=== PATIENT | male | born 2000 | race Caucasian/White ===

== ENCOUNTER 2020-09-12 12:52 | Emergency (ER) | payer SELFPAY ==
[2020-09-12 12:53] VITALS: BP 155/81; PULSE 75; RESP 20; TEMP 36.3; O2SAT 99; BMI 20.2
--- NOTE | 2020-09-12 13:10 | ED.VISSUMM ---
- ER Visit Summary Date of Service: 09/12/20 Chief Complaint: Sore throat History of Present Illness: The patient is a 20 M with no primary care physician. He reports he has a sore throat that began 3 days ago. Reports is mild currently. Is moderate when he swallows. States it is burning with this. He denies any dental pain. He denies any fever, chills, cough, shortness of breath. No known sick contacts. He does wear a mask. Physical Examination: Vitals: Stable. Afebrile. General: Well-nourished and well-developed. Head: Normocephalic atraumatic. HEENT: Pharyngeal erythema. No tonsillar exudate or enlargement. No cervical lymphadenopathy. No evidence of a peritonsillar abscess. Neck: Supple, no lymphadenopathy. No JVD. Nontender. Cardiovascular: Regular rate and rhythm. No murmurs. Respiratory: No respiratory distress. Clear to auscultation bilaterally. Abdominal: Soft, nontender, nondistended, normal bowel sounds. No guarding, rebound, or peritoneal signs. Back: Nontender. Extremities: Nontender, no edema. Skin: Normal color, no rash. Neurologic: Alert and oriented ?3. Cranial nerves II through XII are intact. Normal strength and sensation. Psych: Normal affect. Test Results: Rapid strep was positive. Emergency Department Course and Treatment: Patient refused Covid testing. He also refused pain or nausea medications. He is resting comfortably. Treatment Plan: Patient be discharged with instructions to follow-up with the [facility] in 1 week if not improving. He is instructed on symptomatic care. Return to the emergency department for any worsening symptoms. Disposition: To home in improved and stable condition. Impression: 1. Pharyngitis, strep. This note was generated with [employer] dictation software. It may contain incorrect words, spelling, and punctuation that were not noted in review of the chart prior to signing ED Disposition - Plan for ED Patient: Instructions: ED Pharyngitis Strep Confirmed Prescriptions: Amoxicillin 500 mg PO TID #30 tablet Referrals: [facility] Crouch [NON-STAFF] - 1 Week if not improving
[2020-09-12] MEDS: AMOXICILLIN 500 MG CAPSULE PO (13:57)
== END 2020-09-12 13:57 | disposition home or self-care (01) ==
PROVIDERS: Emergency Provider Emergency Medicine
DX: J02.0 Streptococcal pharyngitis (principal); F17.290 Nicotine dependence, other tobacco product, uncomplicated
CPT/HCPCS: 87880; 99282

== ENCOUNTER 2020-11-09 09:56 | Emergency (ER) | payer SELFPAY ==
[2020-11-09 09:59] VITALS: BP 126/77; PULSE 90; RESP 16; TEMP 36.6; O2SAT 100; BMI 19.9
--- NOTE | 2020-11-09 10:27 | RAD_ITS ---
STUDY: X-RAY CHEST REASON FOR EXAM: Male, 20 years old. LEFT SIDED CHEST PAIN, FELT A POP ON LEFT SIDE TECHNIQUE: PA and lateral views of the chest. COMPARISON: Comparison is made with prior study dated 08/11/2014. FINDINGS: The lungs are clear and expanded. There is no demonstrated pleural abnormality. Normal size heart. Normal mediastinum and robert. Normal visualized pulmonary arteries. Normal visualized aortic arch and descending thoracic aorta. Normal visualized thoracic spine. Normal visualized ribs, clavicles, and shoulders. There is no demonstrated abnormality of the visualized soft tissue structures of the upper abdomen. RAD/Chest PA and Lateral IMPRESSION: Normal x-ray examination of the chest. Electronically Signed: Quan Barragan MD at 10:55 EST , Service support ,
--- NOTE | 2020-11-09 10:29 | ED.VIS.GEN ---
History of Present Illness Chief Complaint: Chest Other Informant: Patient Narrative: 20-year-old male arriving for the evaluation of chest pain. Patient states for the past several days he has had a pain in his left mid ribs in the midaxillary line that is extending anteriorly to the anterior chest. It is worse with touch deep breathing and raising his arm. He denies any known trauma. No shortness of breath. He does vape. No history of pneumothorax. Former smoker. No rashes. Past Medical History - Allergies and Home Meds Allergies/Adverse Reactions: Allergies No Known Allergies Allergy (Verified 11/09/20 09:59) Primary Care Physician: Care Physician,No Primary [Primary Care Provider] - Past Medical History: None Surgical History: noncontributory Smoking Status: Current every day smoker Drugs: Marijuana Review of Systems General: Denies: Chills, Fever, Sweats Eyes: Denies: Visual changes - bilaterally, Diplopia ENT: Denies: Rhinorrhea, Sore throat Cardiovascular: Reports: Chest pain. Denies: Palpitations Respiratory: Denies: Dyspnea, Cough, Dyspnea on exertion Gastrointestinal: Denies: Abdominal pain, Nausea, Vomiting, Diarrhea, Melena, Hematochezia Genitourinary: Denies: Dysuria, Hematuria, Frequency Musculoskeletal: Denies: Back pain, Extremity Pain Skin: Denies: Rash, Wounds Neurological: Denies: Headache, Weakness, Numbness Physical Exam Vital Signs/Narrative: Vital Signs Temp Pulse Resp BP Pulse Ox 11/09/20 09:59 97.9 F 90 16 126/77 H 100 Inital Vital Signs reviewed: Yes General: Well nourished, Well developed, No Acute Distress Head: Normocephalic, Atraumatic Eyes: Perrl, EOMI ENT: Moist mucous membranes, No rhinorrhea Neck: Supple, Nontender Cardiovascular: Regular rate, Regular rhythm, No murmurs Respiratory: No distress, CTA bilaterally, Chest tenderness - Has tenderness in the left mid axillary mid ribs and anterior chest along the costochondral border Abdomen: Soft, Nontender, Nondistended, Normal bowel sounds Back: Nontender, Normal Inspection Extremities: Nontender, No edema Skin: Normal color, No rash Neurological: Alert, Oriented x3, Cranial nerves II-XII grossly intact, Normal Strength, Normal Sensation Psychological: Normal affect, Normal Mood Diagnostic/Tx/Re-eval Clinical Impression(s) from Imaging Studies Chest X-Ray 11/09/20 10:27 IMPRESSION: Normal x-ray examination of the chest. Electronically Signed: Quan Barragan MD at 10:55 EST , Service support , - Medical Decision Making My interpretation of the 2 view chest x-ray is no acute process. Confirmed by radiology. Based upon the patient's description I think this is most likely costochondritis will be treated conservatively with anti-inflammatories at home. ED Disposition - Plan for ED Patient: Disposition: Home or Assisted Living Diagnosis: Costochondritis, acute Instructions: ED Chest Wall Pain, Costochondritis Prescriptions: Ibuprofen [Motrin] 600 mg PO TID #21 tab Prescription Printed Referrals: [facility] [NON-STAFF] - As Needed
[2020-11-09 11:22] VITALS: BP 108/69; PULSE 57; RESP 16; O2SAT 100
== END 2020-11-09 11:22 | disposition home or self-care (01) ==
PROVIDERS: Emergency Provider Emergency Medicine
DX: M94.0 Chondrocostal junction syndrome [Tietze] (principal); F17.200 Nicotine dependence, unspecified, uncomplicated
CPT/HCPCS: 71046; 99282

== ENCOUNTER 2021-09-28 12:42 | Emergency (ER) | payer SELFPAY ==
[2021-09-28 12:43] VITALS: BP 133/85; PULSE 109; RESP 18; TEMP 37; O2SAT 96; BMI 22.8
[2021-09-28 14:30] VITALS: BP 127/95; PULSE 94; RESP 16; O2SAT 97; O2SAT 99
--- NOTE | 2021-09-28 14:54 | EDS_ITS ---
HPI History of Present Illness Chief Complaint: Cough Informant: patient Narrative Narrative: Presents with increasing intermittent wheezing at night in the mornings. Occasional cough. No fevers. No chest pains. No vomiting or diarrhea. No loss of taste or smell. Reports for the past year has switched from cigarettes over to vaping. He states he has been trying to use less of this. No history of asthma. Does not have a PCP. Today wheezing throughout t he day at work had to leave. He came here for evaluation. Prior similar symptoms: Yes PFSH PFSH Medical History no medical history Home Medications NK 09/28/21 [History Last Taken Unknown] Allergy/AdvReac Type Severity Reaction Status Date / Time No Known Allergies Allergy Verified 09/28/21 12:43 Surgical History no surgical history Social History Smoking Status: Current some day smoker tobacco type: e-cigarettes ROS ROS ED Constitutional Constitutional ED: Denies chills, fever(s) or sweats Eyes Eyes: Denies change in vision ENT ENT ED: Denies dysphagia or sore throat Cardiovascular Cardiovascular: Denies chest pain, leg edema, palpitations or racing heartbeat Respiratory/Chest Respiratory/Chest: Reports cough, dyspnea and other Details: Wheezing ; Denies dyspnea on exertion Gastrointestinal Gastrointestinal: Denies abdominal pain, diarrhea, nausea or vomiting Genitourinary Genitourinary ED: Denies dysuria, hematuria or urinary frequency Musculoskeletal Musculoskeletal: Denies back pain, extremity pain or neck pain Integumentary Denies rash or wounds Neurologic Neurologic: Denies headache(s), paresthesias or weakness EXAM Physical Exam Const Vital Signs: 09/28/21 12:43 09/28/21 14:30 Temperature 98.6 F Temperature Source Temporal Pulse Rate 109 H 94 Respiratory Rate 18 16 Respiratory Effort Normal Non-Labored Blood Pressure 133/85 H 127/95 H Blood Pressure Mean 101 105 Pulse Ox 96 99 Oxygen Delivery Method Room Air Room Air Positive well nourished and well developed General Appearance ED: well developed and NAD HEENT Reports moist mucous membranes normocephalic and atraumatic Eyes PERRL, EOMs intact bilaterally and conjunctivae normal General Eye ED: Yes normal appearance of both eyes Neck no lymphadenopathy and supple General: Negative for tenderness Chest Wall Chest: Negative for tenderness Resp normal air movement Resp Narrative: Expiratory wheezing, no distress Effort and Inspection: symmetric chest movement; Negative for respiratory distress Cardio regular rate, regular rhythm and no murmurs Peripheral Pulses: pulses 2+ throughout GI normal to inspection, nondistended, normoactive bowel sounds and non-tender Palpation: Negative for guarding or rebound tenderness present Back/Spine no CVA tenderness and no thoracic nor lumbar tenderness Extremity normal to inspection General Extremety ED: Negative for edema or tenderness General Extremity: Negative for edema Neuro oriented x3 and no sensory deficits noted Sensorium / Orientation: awake and alert Skin no rashes or lesions noted and no wounds MDM MDM MDM Narrative Medical decision making narrative: Patient nontoxic initial pulse 109 in triage recheck was 94. Patient had a rapid Covid from triage returned negative. History symptoms more concerns for bronchospasm secondary to vaping history. He has no asthma history. No indications for steroids. Discussed with patient cessation of vaping. Also admits to occasional marijuana. His lung sounds are symmetric with wheezing. He is provided inhaler with spacer with instructions for use for his wheezing. He is given follow-up as an outpatient. All questions were answered. Patient is being discharged under pandemic conditions under declared global, national and state disaster activation, with limited medical resources. Patient and community understands this. Results discussed in layman's terms to the patient satisfaction. All questions answered in layman's terms. Patient understands importance of follow-up care as directed. Patient has been instructed to return to the ED immediately if new symptoms, problems, or questions occur. We mutually agree with the plan of disposition. The patient understand that they may call or return with any questions or concerns at any time. Discharge Plan Triage Chief Complaint: Cough ED Provider: Enrique Hedrick Dx/Rx/DC Orders Clinical Impression: Wheezing on expiration, Disorder due to vaping Instructions: E-Cigarettes and Vaping, ED Bronchospasm (Adult) Prescriptions: No Action NK RF: 0 Primary Care Provider: Care Physician,No Primary Referrals: [facility] [NON-STAFF] - 1 Week Care Physician,No Primary [Primary Care Provider] - Disposition Disposition: Home, Self Care
== END 2021-09-28 15:01 | disposition home or self-care (01) ==
PROVIDERS: Emergency Provider Emergency Medicine
DX: U07.0 Vaping-related disorder (principal); R06.2 Wheezing; F17.290 Nicotine dependence, other tobacco product, uncomplicated
CPT/HCPCS: 87426; 94640; 99282

== ENCOUNTER 2022-07-06 18:21 | Emergency (ER) | payer OTHER, SELFPAY ==
[2022-07-06 18:22] VITALS: BP 136/101; PULSE 98; RESP 16; TEMP 36.8; O2SAT 97; BMI 23.6
[2022-07-06 20:33] VITALS: PULSE 90; RESP 16; O2SAT 96
[2022-07-06] MEDS: Albuterol 2.5 MG/3 ML VIAL.NEB. INHALATION (20:33)
--- NOTE | 2022-07-06 20:49 | ED.VIS.DYS ---
HPI History of Present Illness Chief Complaint: Cough Informant: patient Narrative Narrative: Patient evaluated for persistent wheezing. Patient does not carry diagnosis of asthma I will but states he often has episodes of wheezing and shortness of breath especially when the weather changes. He was seen in urgent care yesterday were he had a negative COVID test. He notes that they started him on steroids but did not give him an inhaler. A year ago he was seen in our ER and he states when he got inhaler. He is not currently have a primary care doctor. He is interested in a referral as he now has insurance. He notes that yesterday morning he had some cold sweats and felt fatigued in the morning. He continues to smoke half a pack of cigarettes a day. His cough alternates between sputum and foamy white material that he coughs up. Today he had an episode of posttussive emesis. Denies any sick contacts. Denies any nasal congestion or URI symptoms. No other complaints at this time. Does not officially carry a diagnosis of asthma. PFSH PFS Medical History no medical history Home Medications NK 09/28/21 [History Last Taken Unknown] Allergy/AdvReac Type Severity Reaction Status Date / Time No Known Allergies Allergy Verified 07/06/22 18:22 Social History Smoking Status: Current some day smoker tobacco type: cigarettes ROS ROS ED Constitutional Constitutional ED: Reports sweats; Denies chills or fever(s) Eyes Eyes: Denies change in vision ENT ENT ED: Denies rhinorrhea or sore throat Cardiovascular Cardiovascular: Denies chest pain or palpitations Respiratory/Chest Respiratory/Chest: Reports cough, dyspnea and sputum Gastrointestinal Gastrointestinal: Reports vomiting; Denies abdominal pain or nausea Musculoskeletal Musculoskeletal: Denies arthralgias Integumentary Denies rash Neurologic Neurologic: Denies headache(s) or weakness Psychiatric Psychiatric: Denies anxiety EXAM Physical Exam Const Vital Signs: 07/06/22 18:22 07/06/22 18:29 Temperature 98.3 F Temperature Source Temporal Pulse Rate 98 Respiratory Rate 16 Respiratory Effort Short of Breath Respiratory Depth Normal Respiratory Pattern Normal Blood Pressure 136/101 H Blood Pressure Mean 112 Pulse Ox 97 Oxygen Delivery Method Room Air Room Air Positive well nourished and well developed General Appearance ED: well developed and NAD HEENT Reports moist mucous membranes Eyes PERRL and EOMs intact bilaterally Neck supple Resp normal respiratory effort Auscultation: wheezes expiratory wheezes and throughout Cardio regular rate, regular rhythm and no murmurs GI Auscultation: normoactive bowel sounds and hyperactive bowel sounds Back/Spine normal to inspection Extremity normal to inspection Neuro oriented x3 Gait (Neuro): normal gait Psych mental status grossly normal Skin no wounds Rashes: no rashes MDM MDM MDM Narrative Medical decision making narrative: Patient evaluated for months of intermittent wheezing. He was started on steroids yesterday and had negative COVID test yesterday. Patient appears nontoxic and has no new respiratory distress. He does scattered expiratory wheezing however he is respiratory rate is normal and so is his O2 saturation. Breath sounds are equal and I do not think a chest x-ray is indicated. Patient is given an albuterol treatment. When I went in to reevaluate him after his treatment patient had eloped from the emergency room. I previously counseled the patient needs to stop smoking cigarettes and needs to follow-up with a primary care doctor. Respiratory did report improvement of respiratory sounds after treatment. Discharge Plan Triage Chief Complaint: Cough ED Provider: Stephania Retana Dx/Rx/DC Orders Clinical Impression: Expiratory wheezing, Reactive airway disease, Tobacco use Prescriptions: No Action NK Primary Care Provider: Care Physician,No Primary Referrals: Care Physician,No Primary [Primary Care Provider] - Disposition Disposition: Elopement
== END 2022-07-06 20:57 | disposition left against medical advice (07) ==
PROVIDERS: Emergency Provider Emergency Medicine; Visit Provider Emergency Medicine
DX: J45.909 Unspecified asthma, uncomplicated (principal); F17.210 Nicotine dependence, cigarettes, uncomplicated
CPT/HCPCS: 94640; 99251; 99282; G0463

== ENCOUNTER 2023-03-15 14:30 | Emergency (ER) | payer OTHER, SELFPAY ==
[2023-03-15 14:30] VITALS: BP 168/85; PULSE 118; RESP 20; TEMP 36.8; O2SAT 96; BMI 21.8
[2023-03-15 14:39] VITALS: O2SAT 95
--- NOTE | 2023-03-15 14:50 | RAD_ITS ---
STUDY: X-RAY CHEST REASON FOR EXAM: Male, 22 years old. Cough and dyspnea. TECHNIQUE: PA and lateral views of the chest. COMPARISON: Comparison is made with prior study dated November 09, 2020. FINDINGS: The lungs are clear and expanded. Scattered calcified granulomas. There is no demonstrated pleural abnormality. Normal size heart. Normal mediastinum and robert. Normal visualized pulmonary arteries. Normal visualized aortic arch and descending thoracic aorta. Normal visualized thoracic spine. Normal visualized ribs, clavicles, and shoulders. There is no demonstrated abnormality of the visualized soft tissue structures of the upper abdomen. RAD/Chest PA and Lateral IMPRESSION: Normal x-ray examination of the chest. Electronically Signed: Quan Barragan MD at 15:02 EDT ,
--- NOTE | 2023-03-15 15:34 | EX.ED.DYSGE1 ---
HPI History of Present Illness Chief Complaint: Shortness of Breath Narrative Narrative: Patient is a 22-year-old male who is presenting to the ER with chief complaint of years of cough, congestion, nose running and intermittent shortness of breath. Patient smokes cigarettes for approximately 5 to 8 years. Patient quit smoking cigarettes approximate 1 year ago, he has been vaping for the past year. Patient also smokes marijuana. Patient is currently trying to stop smoking and vaping altogether but he will continue to keep doing marijuana. No recent traveling. He is not lightheaded or dizzy. No headache. No neck pain. No chest pain. No significant shortness of breath with exertion. No abdominal pain, nausea or vomiting. Patient does take Claritin intermittently. Patient will notice with the weather changes and high pollen counts the patient is more congested, cough. Patient decided to finally come into the ER today. Patient has no PCP. No one has seen or evaluated this patient last 2 years. No other acute complaints. PFSH PFSH Medical History no medical history Home Medications albuterol sulfate 2.5 mg/3 mL (0.083 %) solution for nebulization 2.5 mg (3 mL) inhalation Q4H PRN #25 vials 03/15/23 [Rx Last Taken Unknown] Allergy/AdvReac Type Severity Reaction Status Date / Time No Known Allergies Allergy Verified 03/15/23 14:33 Social History Smoking Status: Current some day smoker tobacco type: cigarettes ROS ROS ED ROS Narrative REVIEW OF SYSTEMS: Unless otherwise stated in this report the patient's positive and negative responses for review of systems for constitutional, eyes, ENT, cardiovascular, respiratory, gastrointestinal, neurological, , musculoskeletal, and integument systems and related systems to the presenting problem are either stated in the history of present illness or were not pertinent or were negative for the symptoms and/or complaints related to the presenting medical problem. EXAM Physical Exam Narrative Exam Narrative: Vital signs reviewed and patient is not hypoxic. General: The patient appears well and in no apparent distress. Patient is resting comfortably on cart. Not toxic, lethargic, or listless. Skin: Warm, dry, no pallor noted. There is no rash noted. Head: Normocephalic, atraumatic; no tenderness to palpation to bilateral frontal or maxillary sinus. Eye: Normal conjunctiva, no drainage, EOMI. PERRL. Ears, Nose, Mouth, and Throat: oral mucosa is moist. Nares patent. Mouth without vesicles. Cobblestoning to the posterior pharynx. No posterior pharyngeal erythema, petechia or exudate. Patient has open holes to both of his lower earlobes where he previously had wedges in them. No secondary signs of infection. Cardiovascular: Regular Rate and Rhythm, no murmurs, gallops, or rubs Respiratory: Patient is in no distress, no accessory muscle use, lungs are bilateral wheezing diffusely, no rhonchi, no crackles, no rales. Back: non-tender, GI: Soft, no tenderness to palpation, no masses appreciated. No rebound, guarding, or rigidity noted. Musculoskeletal: The patient has full range of motion of all extremities and joints with no difficulty. Patient has no motor, no sensory deficits. Neurological: A&O x4, normal speech, no focal neurological deficits. Psychiatric: Cooperative Const Vital Signs: 03/15/23 14:30 03/15/23 14:39 Temperature 98.2 F Temperature Source Temporal Pulse Rate 118 H Respiratory Rate 20 H Respiratory Effort Non-Labored Short of Breath Respiratory Depth Normal Respiratory Pattern Normal Blood Pressure 168/85 H Blood Pressure Mean 112 Pulse Ox 96 Oxygen Delivery Method Room Air Room Air MDM MDM MDM Narrative Medical decision making narrative: 5 to 7 minutes was done education imaging [id number] products to help treat his chronic allergies, seasonal allergies, rhinitis, and also discussed the side effects of tobacco abuse and tobacco abuse counseling. Patient will be prescribed albuterol inhaler to help with cough and congestion, shortness of breath. Patient understands use Claritin, Zyrtec or Susanne, along with albuterol inhaler. Patient understands importance of using Flonase as well. Patient needs a follow-up and establish PCP or the health department. 3 to 5 minutes was spent on tobacco abuse counseling at bedside. Radiography Chest X-Ray - ED: 2 View and Read by ED Physician (Chest x-ray shows no acute cardiopulmonary disease, no infiltrate, no effusion) Diagnostic Testing: Clinical Impression(s) from Imaging Studies Chest X-Ray 03/15/23 14:50 IMPRESSION: Normal x-ray examination of the chest. Electronically Signed: Quan Barragan MD at 15:02 EDT , Discharge Plan Triage Chief Complaint: Shortness of Breath ED Provider: Freedom Kee Dx/Rx/DC Orders Clinical Impression: Chronic seasonal allergic rhinitis, Chronic cough, Tobacco abuse, Tobacco abuse counseling Instructions: Allergy Medicines: [id number], Nasal Allergy Medicines, Planning to Quit Smoking, ED Cough Chronic Uncertain Cause Adult, ED How to Quit Smoking, ED Allergic Rhinitis Prescriptions: New albuterol sulfate 2.5 mg /3 mL (0.083 %) solution for nebulization 2.5 mg inhalation Q4H PRN Qty: 25 0RF Rx Instructions: Use q4 hours and PRN for wheezing Primary Care Provider: Care Physician,No Primary Referrals: Care Physician,No Primary [Primary Care Provider] - Activity Restrictions/Additional Instructions: Use [id number] Claritin, Zyrtec, Susanne. Use Flonase. Use [id number] Mucinex DM as well. Albuterol Hailer has been prescribed as well. Use incline when sleeping as discussed. Follow-up and establish PCP. Disposition Disposition: Home, Self Care
== END 2023-03-15 15:45 | disposition home or self-care (01) ==
PROVIDERS: Emergency Provider Emergency Medicine; Visit Provider Emergency Medicine
DX: J30.2 Other seasonal allergic rhinitis (principal); R05.3 Chronic cough; F17.290 Nicotine dependence, other tobacco product, uncomplicated; Z71.6 Tobacco abuse counseling
CPT/HCPCS: 71046; 99282

== ENCOUNTER 2024-08-20 12:38 | Emergency (ER) | payer SELFPAY ==
[2024-08-20 12:38] VITALS: BP 134/102; PULSE 82; RESP 18; TEMP 36.1; O2SAT 99; BMI 19.5
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
[2024-08-20 14:40] VITALS: BP 126/87; PULSE 82; RESP 18; TEMP 36.1; O2SAT 99
== END 2024-08-20 14:47 | disposition home or self-care (01) ==
PROVIDERS: Emergency Provider Emergency Medicine; Visit Provider Emergency Medicine
DX: S00.01XA Abrasion of scalp, initial encounter (principal); F17.210 Nicotine dependence, cigarettes, uncomplicated; F17.290 Nicotine dependence, other tobacco product, uncomplicated; X58.XXXA Exposure to other specified factors, initial encounter
CPT/HCPCS: 99283